=== PATIENT | male | born 1970 | race Caucasian/White ===

== ENCOUNTER 2020-05-25 08:08 | Outpatient (REF) | payer BC, SELFPAY ==
[2020-05-25 09:01] LABS: Hemoglobin 15.2 g/dl (14.0-18.0); Mean Corpuscular HGB Conc 33.8 g/dl (31.0-36.0); Mean Corpuscular Hemoglobin 28.5 pg (27.0-33.0); Mean Corpuscular Volume 84.4 fL (80-98); Mean Platelet Volume 9.7 fL (9.4-12.4); Platelet Count 226 X10*3/uL (160-400); Red Blood Count 5.33 X10*6/uL (4.60-5.80); Red Cell Distribution Width 12.3 % (11.0-16.0); White Blood Count 3.6 X10*3/uL (4.8-10.8)
[2020-05-25 09:21] LABS: Alanine Aminotransferase 15 U/L (0-40); Albumin Level 4.4 g/dL (3.5-5.0); Alkaline Phosphatase 91 U/L (39-117); Anion Gap 11 (12-20); Aspartate Amino Transferase 19 U/L (5-37); Bilirubin Total 1.7 mg/dL (0.0-1.0); Blood Urea Nitrogen 6 mg/dL (9-16); C Reactive Protein 0.07 mg/dL (< or = 0.50); Calcium 8.9 mg/dL (8.4-10.2); Carbon Dioxide 24 mmol/L (22-29); Chloride 110 mmol/L (96-108); Estimated Glomerular Filt Rate > 60; Glucose Random 98 mg/dL (60-115); Potassium 4.2 mmol/l (3.3-5.1); Sodium 141 mmol/L (135-145); Total Protein 6.6 g/dL (6.5-8.0)
[2020-05-25 09:40] LABS: Erythrocyte Sedimentation Rate 1 MM/HR (0-15)
[2020-05-25 09:41] LABS: Free T4 (Free Thyroxine) 1.07 ng/dL (0.71-1.85); Thyroid Stimulating Hormone 0.56 uIU/mL (0.32-4.0)
[2020-05-27 15:57] LABS: SARS COV2 IgG Negative (Negative)
[2020-05-27 19:11] LABS: Transglutaminase Ab IgG 3 U/mL; Transglutaminase IgA 1 U/mL
[2020-05-27 19:12] LABS: Immunoglobulin A 136 mg/dL (47-310); Immunoglobulin G 958 mg/dL (600-1640); Immunoglobulin M 27 mg/dL (50-300)
[2020-05-27 19:13] LABS: Immunoglobulin E 31 kU/L (<OR=114)
[2020-05-28 06:37] LABS: Zinc 72 mcg/dL (60-130)
[2020-06-01 12:41] LABS: Gastrin 38 pg/mL (<=100)
== END 2020-05-25 08:09 | disposition home or self-care (01) ==
LOC: HO.LAB 08:08
PROVIDERS: PCP Internal Medicine; Visit Provider Internal Medicine Gastroenterology
DX: R11.2 Nausea with vomiting, unspecified (principal); R10.13 Epigastric pain; R19.7 Diarrhea, unspecified
CPT/HCPCS: 36415; 80053; 82784; 82785; 82941; 82943; 83088; 83516; 83520; 84307; 84439; 84443; 84630; 85027; 85652; 86003; 86140; 86769

== ENCOUNTER 2020-05-27 14:49 | Outpatient (REF) | payer BC, SELFPAY ==
[2020-05-31 18:06] LABS: Histamine Plasma <1.5 ng/mL (< OR = 1.8)
== END 2020-05-27 14:50 | disposition home or self-care (01) ==
LOC: HO.LAB 14:49
PROVIDERS: PCP Internal Medicine; Visit Provider Internal Medicine Gastroenterology
DX: R11.2 Nausea with vomiting, unspecified (principal); R10.13 Epigastric pain; R19.7 Diarrhea, unspecified
CPT/HCPCS: 82943; 83088; 84307

== ENCOUNTER 2020-06-17 13:06 | Outpatient (REF) | payer BC, SELFPAY ==
--- NOTE | 2020-06-17 13:08 | CT_ITS ---
EXAMINATION: CT ENTEROGRAPHY ABDOMEN AND PELVIS WITH CONTRAST CLINICAL INFORMATION: Nausea and vomiting COMPARISON: None TECHNIQUE: Study performed with oral VoLumen (1350 mL) and 480 mL of water to distend the abdomen. The patient was injected with 85 mL Omnipaque 350 intravenous contrast which was administered without adverse effect. Coronal and sagittal reformatted images were obtained at the technologist's workstation. This CT examination was performed using dose optimization techniques as appropriate, variously including the following: *Automated exposure control *Adjustment of mA and/or kV according to patient size (this includes techniques or standardized protocols for targeted exams where dose is matched to indication/reason for exam; i.e. extremities or head) *Use of iterative reconstruction technique DLP: 475 mGy-cm FINDINGS: GASTROINTESTINAL FINDINGS: Stomach: Well-distended and normal in appearance. Small intestine: There are postsurgical changes to the small bowel with anastomotic staple line in the left mid abdomen. There is focal dilatation of the small bowel at the staple line measuring up to 4 cm. There is a small air fluid level superior to the third portion of the duodenum questionable for a small duodenal diverticulum for example axial image 90 series 3, sagittal reconstructed image 57 and coronal reconstructed image 38 and 44. Large intestine: There is diverticulosis of the colon. No evidence of diverticulitis is seen.. No perirectal changes demonstrated. The appendix is normal. Additional findings: No abnormal enhancement of the vasa recta or significant mesenteric or retroperitoneal lymphadenopathy is seen. No abdominal abscess or fistulous tract demonstrated. ABDOMINAL AND PELVIC CT FINDINGS: Liver, gallbladder, biliary tract: The liver is normal in size, shape and contour. There is a 1.3 x 2 cm low-attenuation lesion in the left lobe liver axial image 38 series 3 compatible with a cyst. There is a small 4 mm low-attenuation lesion in the right lobe of the liver axial image 67 series 2. Difficult to characterize due to small size but may represent a cyst. The gallbladder has been removed. There is no biliary duct dilatation. Pancreas: Unremarkable Spleen: The spleen is enlarged measuring 15 cm in length. No focal splenic lesion is seen. Adrenal glands and kidneys: Unremarkable Ureters and bladder: The bladder is not optimally distended but appears unremarkable. Lymphovascular structures: There are no enlarged lymph nodes. There are small, small bowel mesentery lymph nodes in the right lower quadrant. No enlarged lymph nodes are seen. Vascular structures are unremarkable. Bones: There are mild degenerative changes of the spine. Lung bases: The visualized lung bases are clear. CT/CT enterography IMPRESSION: Postsurgical changes to the small bowel. There is focal small bowel dilatation measuring up to 4 cm at the surgical staple line. Question small duodenal diverticulum superior to the third portion of the duodenum. Small bowel is otherwise unremarkable. Diverticulosis of the colon. No evidence of diverticulitis. Post cholecystectomy. Probable liver cysts. Enlarged spleen.
[2020-06-17] MEDS: iohexoL 350 MG/ML 100 ML INFUS..BTL IV (14:48)
[2020-06-17] MEDS: Sorbitol/Mannit/Xanth Imaging 500 ML LIQUID PO ×3 (14:48→14:53)
== END 2020-06-17 13:07 | disposition home or self-care (01) ==
LOC: HO.US 13:06
PROVIDERS: PCP Internal Medicine; Visit Provider Internal Medicine Gastroenterology
DX: R10.13 Epigastric pain (principal); R11.2 Nausea with vomiting, unspecified; K52.9 Noninfective gastroenteritis and colitis, unspecified
CPT/HCPCS: 74177; Q9967

== ENCOUNTER 2024-03-01 08:51 | Day surgery (SDC) | payer BC, SELFPAY ==
--- NOTE | 2024-02-29 12:40 | HO.ANESPROP2 ---
HPI - Anesthesia Eval Consult details Narrative: 53yo M for Colonoscopy Afib s/p ablation, Eliquis PMFSH Active Problems Active Problems: All Active Problems Splenomegaly (Acute) Colitis (Acute) Diarrhea (Acute) Epigastric abdominal pain (Acute) Nausea & vomiting (Acute) Past Medical History Medical History (Updated 07/24/20 @ 10:34 by Yoanna Chávez MD) CHANNING (obstructive sleep apnea) Migraine Hyperlipemia A-fib History of basal cell cancer Family History Family History Mother Lung cancer Dementia Thyroid cancer Breast cancer Father Afib CHF (congestive heart failure) Maternal Grandfather Heart attack Maternal Grandmother Heart attack Paternal Grandfather Heart attack Paternal Grandmother Heart attack Family/Other Hyperlipidemia Maternal Aunt COPD (chronic obstructive pulmonary disease) Acute Crohn's disease Maternal Aunt Breast cancer Brain tumor Maternal Uncle Prostate cancer Sister Spinal cord tumor Breast tumor Surgical History Surgical History History of cardiac radiofrequency ablation Hx of abdominal surgery Hx of hernia repair Hx of cholecystectomy History of bowel resection Social History Social History (Updated 07/24/20 @ 10:11 by Dea Pride) Alcohol intake: current Alcohol intake frequency: holidays/special occasions only Alcohol type: hard liquor Patient Tobacco Use Status: Never used Tobacco Meds Allergies Allergy/AdvReac Type Severity Reaction Status Date / Time Sulfa (Sulfonamide Allergy Hives Verified 07/24/20 10:11 Antibiotics) Home Medications ?Medication ?Instructions ?Recorded ?Confirmed ?Last Taken ?Type atorvastatin 20 mg tablet 1 tab PO DAILY 07/24/20 07/24/20 Unknown History cyanocobalamin (vitamin B-12) 1,000 mcg PO DAILY 07/24/20 07/24/20 Unknown History 1,000 mcg tablet metoprolol tartrate 25 mg tablet 1 tab PO BID 07/24/20 07/24/20 Unknown History omeprazole 20 mg capsule,delayed 20 mg PO DAILY 07/24/20 07/24/20 Unknown History release topiramate 25 mg tablet 50 mg PO DAILY 07/24/20 07/24/20 Unknown History apixaban 5 mg tablet (Eliquis) 5 mg PO BID 02/29/24 03/01/24 02/26/24 History Assessment and Plan Assessment Anesthesia Assessment: Chart Reviewed
[2024-03-01 09:51] VITALS: BMI 30.1
[2024-03-01 09:55] VITALS: BP 147/89; PULSE 69; RESP 16; TEMP 37.2; O2SAT 96
--- NOTE | 2024-03-01 10:11 | MHC.SHP ---
Pre-Procedural Eval Section A - 24 Hr Update-Section A only Date of Service: 03/01/24 Section B - Complete if H&P > 30 days Chief Complaint: Polyp of colon Relevant Family History (Specify if Yes): No Relevant Social History: None Present Medications: see Short Stay Collaborative assessment Medical History: Significant History (CHANNING (obstructive sleep apnea) Migraine Hyperlipemia A-fib History of basal cell cancer) History of Previous Operations: Relevant previous surgery/procedure and date(s) ( History of cardiac radiofrequency ablation Hx of abdominal surgery Hx of hernia repair Hx of cholecystectomy History of bowel resection) Allergies: Allergies Allergy/AdvReac Type Severity Reaction Status Date / Time Sulfa (Sulfonamide Allergy Hives Verified 07/24/20 10:11 Antibiotics) Review of Systems Sugical H&P ROS: Negative: Constitution, Cardiovascular, Respiratory, Neurological, Psychiatric, Hem-Onc, Allergic/Immunologic, Gastrointestinal, Genitourinary, Musculoskeletal, Integumentary, Endocrine and Eyes/Ears/Nose/Throat Exam Surgical H&P Exam: Normal: HEENT, Normal: Heart, Normal: Lungs, Normal: Extremities, Normal: Abdomen, Normal: Skin and Normal: Neurological Plan Diagnosis/Plan: Unchanged I have reviewed the history and physical and performed a pertinent physical examination on my patient. No changes have occurred unless specified. colonoscopy due to hx of colon polyp Time Spent With Patient Time: Total time managing care of this patient today ____ minutes.
[2024-03-01] MEDS: Lactated Ringers 1,000 ML 100 ML IVCONT (10:15)
--- NOTE | 2024-03-01 10:54 | HO.OPN-COLON ---
Colonoscopy Operative Note Operative Note Date of Service: 03/01/24 Narrative: Operative Information Procedure Description: Colonoscopy Indication: screening, hx of colon polyp Anesthesia: MAC COLONOSCOPY Instrument: Olympus variable stiffness pediatric scope 190L Colonoscopy Monitoring: Vital signs and clinical assessment, continuous EKG monitoring, Pulse oximetry, Carbon Dioxide monitoring and blood pressure monitoring were done throughout the procedure. Colon withdrawal time was 12 minutes. Procedure: The patient was placed in the left lateral decubitis position and pre-procedure medications were administered. After a digital rectal examination of the ano-rectum, the video colonoscope was inserted into the rectum and advanced through the colon to the cecum/TI. The colonoscope was slowly withdrawn in a retrograde panoramic fashion and the colon mucosa was carefully examined including a retroflexed view of the rectum. Findings and interventions are described below. Procedure Difficulty: easy Findings: Terminal Ileum-normal Cecum:normal Ascending Colon: normal Transverse Colon -normal Descending Colon:normal Sigmoid Colon: moderate diverticulosis Rectum: Retroflexion with small internal hemorrhoids seen, grade I Anorectum - normal Intervention: none Colon preparation: [place] Bowel Preparation Scale Right colon; 2 Transverse colon: 2 Left colon; 3 (0 = Unprepared colon segment with mucosa not seen due to solid stool that cannot be cleared. 1 = Portion of mucosa of the colon segment seen, but other areas of the colon segment not well seen due to staining, residual stool and/or opaque liquid. 2 = Minor amount of residual staining, small fragments of stool and/or opaque liquid, but mucosa of colon segment seen well. 3 = Entire mucosa of colon segment seen well with no residual staining, small fragments of stool or opaque liquid) Impression and Post Procedure Diagnosis: diverticulosis internal hemorrhoids Plan: High fiber diet leaflet Avoid straining at stool, epsom salts and sitz bath, anusol supps or cream Repeat Colonoscopy in 10 years or earlier if clinically indicated Above findings were reviewed with the patient and relevant handouts were provided if indicated.
[2024-03-01 11:01] VITALS: BP 113/70; PULSE 65; RESP 14; TEMP 36.3; O2SAT 95
[2024-03-01 11:17] VITALS: BP 123/79; PULSE 66; RESP 17; O2SAT 97
[2024-03-01 11:36] VITALS: BP 131/79; PULSE 65; RESP 17; TEMP 36.1; O2SAT 96
== END 2024-03-01 12:01 | disposition home or self-care (01) ==
PROVIDERS: PCP Internal Medicine; Visit Provider Internal Medicine Gastroenterology
PROC: 0DJD8ZZ Inspection of Lower Intestinal Tract, Via Natural or Artificial Opening Endoscopic (ICD-10-PCS; CPT 45378; principal; 2024-03-01 11:30)
DX: Z12.11 Encounter for screening for malignant neoplasm of colon (principal); Z86.010 Personal history of colon polyps; K57.30 Diverticulosis of large intestine without perforation or abscess without bleeding; K64.0 First degree hemorrhoids; Z85.828 Personal history of other malignant neoplasm of skin; I48.91 Unspecified atrial fibrillation; G47.33 Obstructive sleep apnea (adult) (pediatric); E78.5 Hyperlipidemia, unspecified; Z79.01 Long term (current) use of anticoagulants; Z79.899 Other long term (current) drug therapy; Z99.89 Dependence on other enabling machines and devices; Z88.2 Allergy status to sulfonamides; Z90.49 Acquired absence of other specified parts of digestive tract; Z98.890 Other specified postprocedural states
CPT/HCPCS: 45378; J2704

== ENCOUNTER → 2024-03-01 08:51 | Outpatient (BNV) | payer BC, SELFPAY | PROVIDERS: PCP Internal Medicine; Visit Provider Internal Medicine Gastroenterology | DX: Z12.11 Encounter for screening for malignant neoplasm of colon (principal); Z86.010 Personal history of colon polyps; K57.30 Diverticulosis of large intestine without perforation or abscess without bleeding; K64.0 First degree hemorrhoids | CPT/HCPCS: 45378 ==

== ENCOUNTER → 2024-03-08 14:13 | Outpatient (RCR) | payer BC, SELFPAY ==
[2020-07-24 09:56] VITALS: BP 146/80; PULSE 68; RESP 12; TEMP 36.5; O2SAT 99; BMI 27.6
--- NOTE | 2020-07-24 10:34 | PM.HEMONCCN ---
Subjective - Subjective Chief complaint: Enlarged spleen Patient: new to practice Consult date: 07/24/20 Requesting Physician: Dr. Black Primary Care Provider: Claudine Ruiz MD HPI - Consult Narrative Reason for consult: Splenomegaly Narrative: Esteban Denton is a 50 year old male who is referred for evaluation of splenomegaly. He has a history of recurrent colitis and he was recently evaluated by his it senior analyst for symptoms of diarrhea as well as shortness of breath with exertion. He had a CT of abdomen which revealed splenomegaly with spleen size measuring 15 cm. No hepatomegaly or liver cirrhosis. As per part of workup he also had a Holter monitor placed which came out normal. He denies any chest pain, cough, fever or chills. He is been getting more tired lately with his usual amount of exertion. He denies any leg swelling or edema. He has no hematochezia or melena. No headache or dizziness. Review of Systems - Constitutional Denies anorexia, Denies fatigue, Denies malaise, Denies night sweats, Denies poor appetite, Denies weight loss - Cardiovascular Reports no additional cardiovascular complaints - Respiratory Reports no additional respiratory complaints - Gastrointestinal Reports no additional gastrointestinal complaints [facility] Medical History: Medical History (Last Updated 07/24/20 @ 10:14 by Dea Pride) A-fib History of basal cell cancer Hyperlipemia Migraine CHANNING (obstructive sleep apnea) Family History: Family History (Last Updated 07/24/20 @ 10:11 by Dea Pride) Mother Lung cancer Dementia Thyroid cancer Breast cancer Father Afib CHF (congestive heart failure) Maternal Grandfather Heart attack Maternal Grandmother Heart attack Paternal Grandfather Heart attack Paternal Grandmother Heart attack Family/Other Hyperlipidemia Maternal Aunt COPD (chronic obstructive pulmonary disease) Acute Crohn's disease Maternal Aunt Breast cancer Brain tumor Maternal Uncle Prostate cancer Sister Spinal cord tumor Breast tumor Surgical History: Surgical History (Last Updated 07/24/20 @ 10:02 by Dea Pride) History of bowel resection History of cardiac radiofrequency ablation Hx of abdominal surgery Hx of cholecystectomy Hx of hernia repair Smoking status: Never smoker Home Medications and Allergies Home Medications Medication Instructions Recorded Confirmed Type atorvastatin 1 tab PO DAILY 07/24/20 07/24/20 History cyanocobalamin (vitamin B-12) 1,000 mcg PO DAILY 07/24/20 07/24/20 History metoprolol tartrate 1 tab PO BID 07/24/20 07/24/20 History omeprazole 20 mg PO DAILY 07/24/20 07/24/20 History topiramate 50 mg PO DAILY 07/24/20 07/24/20 History Allergies Allergy/AdvReac Type Severity Reaction Status Date / Time Sulfa (Sulfonamide Allergy Hives Verified 07/24/20 10:11 Antibiotics) Physical Exam Vital signs: Vital Signs Temp 97.7 F 07/24/20 09:56 Pulse 68 07/24/20 09:56 Resp 12 07/24/20 09:56 BP 146/80 H 07/24/20 09:56 Pulse Ox 99 07/24/20 09:56 Intake & Output 07/23/20 07/24/20 07/24/20 18:59 06:59 18:59 Other: Weight 85.9 kg Weight 85.9 kg - Constitutional Present: no acute distress - Routine HEENT Exam Head: Present: normal inspection Eye: Present: EOMI - Routine Neck Exam Absent: lymphadenopathy - Routine Respiratory Exam Present: CTAB - Routine Cardiovascular Exam Cardiovascular: Present: RRR, S1, S2 - Routine Abdominal Exam Present: normal bowel sounds, soft Comments: Fullness in the left upper quadrant. - Routine Extremities Exam Present: pulses intact. Absent: pedal edema - Routine Skin Exam Present: intact, dry. Absent: erythema - Routine Neurological Exam Present: oriented X3 Hem/Onc Consult Result - Labs CBC & Chem 7: 07/24/20 11:03 07/24/20 11:03 Assessment and Plan (1) Splenomegaly Status: Acute 1. This is a 50-year-old male referred for evaluation of mild splenomegaly found incidentally when performed for evaluation of colitis. Patient has chronic colitis and has been under the care of his it senior analyst for several years. He has had small bowel resection more than 10 years ago. He does not have any constitutional symptoms at this time, his weight loss a few weeks ago was related to his colitis/diarrhea. He does not have lymphadenopathy or cytopenias. No history of HIV, hepatitis, chronic liver disease or other infections that may be associated with splenomegaly such as malaria. Hematological disorders such as lymphoma, myeloproliferative neoplasms can be associated with splenomegaly, further workup is pending. I have obtained copies of his imaging studies from [facility]. In April 2018 he had mild splenomegaly with a spleen size of 14.2 cm, prior to that his spleen is reported as normal. Currently this spleen size is 15 cm. Depending on rest of hematological workup, further recommendations will be made. If blood work is all normal, would recommend another imaging study in 3-6 months time. I thank you for this referral.
[2020-07-24 11:13] LABS: MANUAL DIFF FLAG NO
[2020-07-24 11:21] LABS: Basophils Percent Auto 0.7 % (0-2); Eosinophils Absolute Auto 0.1 X10*3/uL (0.0-0.4); Eosinophils Percent Auto 1.4 % (0-4); Hematocrit 43.9 % (42-52); Hemoglobin 14.7 g/dl (14.0-18.0); Imm Gran Abs Auto 0.05 X10*3/uL (0.00-0.03); Imm Gran Pct Auto 0.9 % (0.0-0.4); Lymphocytes Absolute Auto 0.8 X10*3/uL (1.2-4.9); Lymphocytes Percent Auto 14.1 % (20-40); Mean Corpuscular HGB Conc 33.5 g/dl (31.0-36.0); Mean Corpuscular Hemoglobin 28.7 pg (27.0-33.0); Mean Corpuscular Volume 85.7 fL (80-98); Mean Platelet Volume 9.8 fL (9.4-12.4); Monocytes Absolute Auto 0.5 X10*3/uL (0.1-1.2); Monocytes Percent Auto 8.8 % (2-11); Neutrophils Absolute Auto 4.2 X10*3/uL (2.0-8.3); Neutrophils Percent Auto 74.1 % (45-73); Platelet Count 245 X10*3/uL (160-400); Red Blood Count 5.12 X10*6/uL (4.60-5.80); Red Cell Distribution Width 12.6 % (11.0-16.0); White Blood Count 5.7 X10*3/uL (4.8-10.8)
[2020-07-24 11:40] LABS: Alanine Aminotransferase 21 U/L (0-40); Albumin Level 4.4 g/dL (3.5-5.0); Alkaline Phosphatase 91 U/L (39-117); Anion Gap 11 (12-20); Aspartate Amino Transferase 18 U/L (5-37); Bilirubin Total 1.3 mg/dL (0.0-1.0); Blood Urea Nitrogen 9 mg/dL (9-16); Calcium 9.2 mg/dL (8.4-10.2); Carbon Dioxide 25 mmol/L (22-29); Chloride 110 mmol/L (96-108); Creatinine Clr Calc Pharmacy 102.1; Estimated Glomerular Filt Rate > 60; Glucose Random 101 mg/dL (60-115); Lactate Dehydrogenase 195 U/L (118-273); Potassium 4.8 mmol/l (3.3-5.1); Sodium 141 mmol/L (135-145); Total Protein 6.7 g/dL (6.5-8.0)
--- NOTE | 2020-07-24 11:57 | MHC.HEMONCMA ---
Patient came in for a consult for enlarged spleen. States he is doing well. I completed his medical history, family history and updated his allergies and medications.
[2020-07-24 12:12] LABS: Folate 6.3 ng/mL (> or = 4.0); Vitamin B12 384 pg/mL (200-900)
[2020-07-24 12:20] LABS: Erythrocyte Sedimentation Rate 2 MM/HR (0-15)
[2020-07-25 15:23] LABS: Prot Elec - Albumin 4.2 g/dL (3.8-4.8); Prot Elec - Alpha1 0.3 g/dL (0.2-0.3); Prot Elec - Alpha2 0.6 g/dL (0.5-0.9); Prot Elec - Beta 1 0.4 g/dL (0.4-0.6); Prot Elec - Beta 2 0.3 g/dL (0.2-0.5); Prot Elec - Gamma 0.8 g/dL (0.8-1.7); Prot Elec - Total Protein 6.6 g/dL (6.1-8.1)
[2020-07-26 13:42] LABS: IgA 131 mg/dL (47-310); IgG 880 mg/dL (600-1640); IgM 22 mg/dL (50-300)
== END | disposition home or self-care (01) ==
LOC: HO.ONC 07-24 09:43
PROVIDERS: PCP Internal Medicine; Referring Provider Internal Medicine Gastroenterology; Visit Provider Internal Medicine
DX: R16.1 Splenomegaly, not elsewhere classified (principal)
CPT/HCPCS: 36415; 80053; 82607; 82746; 82784; 83615; 84155; 84165; 85025; 85652; 86334; 99204